=== PATIENT | male | born 1975 | race Caucasian/White ===

== ENCOUNTER → 2019-04-21 13:03 | Outpatient (CLI) | payer BC, SELFPAY ==
--- NOTE | 2019-04-21 13:10 | DI.CT.S_ITS ---
PROCEDURE: CT CERVICAL SPINE WO CON INDICATIONS: cervicalgia TECHNIQUE: Noncontrast 3 mm thick sections acquired from the skull base to the T4 level. Sagittal and coronal reformats were then constructed. For radiation dose reduction, the following was used: automated exposure control, adjustment of mA and/or kV according to patient size. COMPARISON: [facility], CT, HEAD WITHOUT CONTRAST, 07/13/2016, 13:38. FINDINGS: Image quality: Excellent. Bones: No fractures or dislocations. Visualized superior ribs are intact. There is reversal of the normal cervical lordosis, with the apex at the C5-C6 level. At C5-C6, there is focal moderate disc space narrowing. Milder degenerative changes are seen elsewhere. Bridging anterior osteophytes are seen most currently at C5-C6, and also present at C4-C5 and C6-C7. Soft tissues: Prevertebral soft tissues are normal in thickness. No paravertebral hematomas. No apical pneumothoraces. IMPRESSION: No acute abnormality is seen. Degenerative changes are seen, which are most prominent at C5-C6. Reversal of the normal cervical lordosis is seen. This is commonly observed in patients with muscular spasm. Dictated by: Sarkis Anthony M.D. on 04/21/2019 at 13:20 Approved by: Sarkis Anthony M.D. on 04/21/2019 at 13:21
== END ==
PROVIDERS: Visit Provider Orthopaedic Surgery
DX: M54.2 Cervicalgia (principal); M47.812 Spondylosis without myelopathy or radiculopathy, cervical region
CPT/HCPCS: 72125

== ENCOUNTER → 2021-01-07 08:21 | Outpatient (CLI) | payer OTHER, SELFPAY ==
--- NOTE | 2021-01-07 | DI.MRI.S_ITS ---
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 Concussion with loss of consciousness of 30 minutes or less, TECHNIQUE: Noncontrast sagittal T1 spin echo and T2 fast spin echo, sagittal STIR, foraminal oblique sagittal T2 fast spin echo, and axial gradient echo or T2 fast spin echo through the cervical spine. COMPARISON: [facility], CR, XR CERVICAL SPINE WITH FLEXION EXTENSION, 01/08/2019, 7:20. [facility], MR, MR CERVICAL SPINE WITHOUT CONTRAST, 07/09/2019, 14:09. [facility], MR, MR CERVICAL SPINE WITHOUT CONTRAST, 07/21/2019, 1:07. FINDINGS: Image quality: This examination is limited by involuntary motion artifact. Alignment and Curvature: There is straightening of the normal cervical lordosis. No focal AP alignment abnormality is seen. Bone Marrow: Marrow demonstrates normal overall signal. Spinal Cord: Visualized spinal cord has normal size and signal. No cerebellar tonsillar herniation. Paraspinous Soft Tissues: No paravertebral masses. Prevertebral soft tissues are normal in thickness. C2-C3: No significant abnormality is seen. C3-C4: The disc height and disk signal are well-preserved. Mild central canal narrowing is seen. Moderate generalized disc osteophyte complex is seen. Moderate facet joint hypertrophy is seen. There is moderate to severe right-sided and at least moderate left-sided neural foraminal narrowing seen. Mild central canal narrowing is seen. These imaging findings have progressed compared to the prior study. C4-C5: Mild loss of disc height is seen. Loss of disc signal is seen. Bridging endplate osteophytes are seen. Moderate generalized disc osteophyte complex is seen. Moderate facet joint hypertrophy is seen. Moderate to severe bilateral neural foraminal narrowing is seen, left worse than right. Moderate central canal narrowing is seen. There is associated mass effect upon the ventral spinal cord. When comparison is made with the prior images, these findings are similar. C5-C6: Moderate loss of disc height is seen. Loss of disc signal is seen. Bridging endplate osteophytes are seen. Moderate generalized disc osteophyte complex is seen. Moderate facet hypertrophy is seen, left worse than right. There is moderate to severe bilateral neural foraminal narrowing seen, left worse than right. Mild to moderate central canal narrowing is seen. Minimal mass effect can be seen upon the ventral spinal cord. These imaging findings have progressed compared to the prior study. C6-C7: The disc height and disc signal are relatively well preserved. Moderate disc osteophyte complex is seen, with a central disc protrusion. At least moderate facet hypertrophy is seen. There is at least moderate left-sided and [id number] right-sided neural foraminal narrowing seen. Mild to moderate central canal narrowing is seen. These imaging findings have progressed compared to the prior study. When comparison is made with the prior images, these findings are similar. C7-T1: No significant abnormality is seen. 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 Dictated by: Sarkis Anthony M.D. on 01/07/2021 at 10:21 Approved by: Sarkis Anthony M.D. on 01/07/2021 at 10:28
== END ==
PROVIDERS: Referring Provider Chiropractor; Visit Provider Chiropractor
DX: S06.0X1A Concussion with loss of consciousness of 30 minutes or less, initial encounter (principal)
CPT/HCPCS: 72141